=== PATIENT | female | born 1975 | race African-American/Black ===

== ENCOUNTER 2024-11-20 19:29 | Emergency (ER) | payer OTHER ==
[~2024-11-20] VITALS: Ht 170.2 cm; Wt 133.8 kg
[2024-11-20] MEDS ORDERED: IPRAT-ALBUT 0.5-3 ML NEB (20:06)
[2024-11-20] MEDS ORDERED: ROBITUSSIN COU118 M4 PO (20:06)
[2024-11-20] MEDS ORDERED: VENTOLIN HFA18 GM INH (20:06)
[2024-11-20] MEDS ORDERED: LEVOFLOXACIN250 MG PO (20:06)
[2024-11-20] MEDS: LEVOFLOXACIN 500 MG TAB PO ONE (20:32)
[2024-11-20] MEDS: IBUPROFEN 600 MG TAB PO ONE (20:32)
[2024-11-20] MEDS ORDERED: TAMIFLU75 MG PO (20:35)
[2024-11-20 20:47] VITALS: PULSE 98; RESP 18; TEMP 99.9
[2024-11-20 20:48] VITALS: BP 142/85; O2SAT 95
== END 2024-11-20 20:51 | disposition home or self-care (01) ==
LOC: FSED 19:33
DX: R50.9 Fever, unspecified (principal); J10.1 Influenza due to other identified influenza virus with other respiratory manifestations; R05.9 Cough, unspecified; I10 Essential (primary) hypertension; E11.9 Type 2 diabetes mellitus without complications
CPT/HCPCS: 0223U; 71046; 83518; 87400; 99283

== ENCOUNTER 2024-12-31 14:41 | Emergency (ER) | payer OTHER ==
[~2024-12-31] VITALS: Ht 170.2 cm; Wt 135.7 kg
[~2024-12-31 14:41] MED LIST: IPRAT-ALBUT 0.5-3 ML NEB; LEVOFLOXACIN250 MG PO; ROBITUSSIN COU118 M4 PO; TAMIFLU75 MG PO; VENTOLIN HFA18 GM INH
[2024-12-31 15:05] VITALS: PULSE 77; RESP 20; TEMP 97.6; O2SAT 96
[2024-12-31] MEDS ORDERED: AMLODIPINE BESYL5 MG PO (15:25)
[2024-12-31] MEDS ORDERED: LOSARTAN POTAS100 MG PO (15:25)
[2024-12-31] MEDS ORDERED: TYLENOL325 MG PO (15:25)
[2024-12-31] MEDS: ONDANSETRON HCL 4 MG ORAL DISINTEGRATING TAB PO ONE (15:51)
[2024-12-31 15:52] VITALS: BP 165/84
[2024-12-31] MEDS: ACETAMINOPHEN 325 MG TAB PO ONE (15:52)
[2024-12-31] MEDS: CLONIDINE HCL 0.1 MG TAB PO ONE (15:52)
[2024-12-31] MEDS: IBUPROFEN 200 MG TAB PO ONE (15:53)
== END 2024-12-31 16:10 | disposition home or self-care (01) ==
LOC: FSED 15:02
DX: R51.9 Headache, unspecified (principal); I10 Essential (primary) hypertension; E11.65 Type 2 diabetes mellitus with hyperglycemia; J45.909 Unspecified asthma, uncomplicated
CPT/HCPCS: 70450; 80053; 81003; 85025; 99284; Q0162